=== PATIENT | female | born 1950 | race Caucasian/White ===

== ENCOUNTER 2022-10-12 14:13 | Outpatient (CLI) | payer MEDICARE ==
--- NOTE | 2022-10-12 17:18 | XRAY Report ---
PROCEDURE: Shoulder 3 View LT INDICATIONS: ACUTE PAIN OF LEFT SHOULDER TECHNIQUE: 3 views of the shoulder were acquired. COMPARISON: None. FINDINGS: Bones: No dislocations. There is a small linear ossific fragment suspicious for cortical avulsion a long the inferior aspect of the glenoid on the axillary view. No suspicious bony lesions. Visualized ribs appear intact. Soft tissues: No suspicious soft tissue calcifications. IMPRESSION: 1. Possible nondisplaced inferior glenoid cortical avulsion or bony [place] lesion. 2. No other displaced fractures seen. Reviewed by: Patricia Parsons MD on 10/12/2022 5:16 PM PST Approved by: Patricia Parsons MD on 10/12/2022 5:16 PM PST Station ID: [id number]
== END 2022-10-12 14:14 | disposition home or self-care (01) ==
LOC: DI.S 14:13
PROVIDERS: ATTEND Family Medicine
DX: M25.512 Pain in left shoulder (principal)

== ENCOUNTER 2022-11-09 03:14 | Emergency (ER) | payer MEDICARE ==
[2022-11-09] MEDS ORDERED: SODIUM CHLORIDE 0.9% 500 ML IV STA (03:46)
[2022-11-09] MEDS ORDERED: MORPHINE 2 MG/ML CARPUJECT IVP STA (03:53)
[2022-11-09 04:05] LABS: BASOPHILS % (AUTO) 0.4 %; EOSINOPHILS # (AUTO) 0.2 10^3/uL (0.0-0.7); EOSINOPHILS % (AUTO) 1.9 %; HCT - HEMATOCRIT 41.8 % (37.0-47.0); HGB - HEMOGLOBIN 13.5 g/dL (12.0-16.0); LYMPHOCYTES # (AUTO) 2.4 10^3/uL (1.5-3.5); LYMPHOCYTES % (AUTO) 21.3 %; MEAN CORPUSCULAR HEMOGLOBIN 31.3 pg (27.0-31.0); MEAN CORPUSCULAR HGB CONC 32.3 g/dL (32.0-36.0); MEAN CORPUSCULAR VOLUME 96.8 fL (81.0-99.0); MEAN PLATELET VOLUME 10.1 fL (7.9-10.8); MONOCYTES % (AUTO) 8.7 %; NEUTROPHILS # (AUTO) 7.6 10^3/uL (1.5-6.6); NEUTROPHILS % (AUTO) 67.1 %; PLT - PLATELET COUNT 266 10^3/uL (130-450); RED BLOOD COUNT 4.32 10^6/uL (4.20-5.40); RED CELL DISTRIBUTION WIDTH 12.2 % (12.0-15.0); WHITE BLOOD COUNT 11.4 x10^3/uL (4.8-10.8)
--- NOTE | 2022-11-09 04:07 | ED Physician Documentation ---
History of Present Illness - Stated complaint Stated Complaint: FEMALE /GLF - Chief complaint Chief Complaint: Abd Pain - History obtained from History obtained from: Patient - Additonal information Additional information: 71yF with recent history of dilation and curettage 6 days ago at [place] p/w heavy vaginal bleeding tonight and 2 episodes of syncope in the bathroom. Patient states she was having vaginal bleeding and so went for d and c, had one polyp removed then had only light spotting until yesterday when it became heavy. She was in bathroom this past evening and looked down to see large amount of blood in toilet. She then became lightheaded prior to falling to the floor and losing consciousness. She again passed out immediately after coming back to consciousness. Review of Systems GI: denies: Abdominal Pain : reports: Vaginal bleeding Musculoskeletal: reports: Extremity pain Neurologic: reports: Syncope PD PAST MEDICAL HISTORY - Allergies Allergies/Adverse Reactions: Allergies Allergy/AdvReac Type Severity Reaction Status Date / Time gentamicin AdvReac Unknown Verified 11/09/22 03:32 PD ED PE NORMAL - Vitals Vital signs reviewed: Yes - General General: Alert and oriented X 3, No acute distress, Other (elderly appearing) - HEENT HEENT: Atraumatic, PERRL, EOMI - Neck Neck: No bony TTP - Cardiac Cardiac: RRR - Respiratory Respiratory: No respiratory distress, Clear bilaterally - Abdomen Abdomen: Non tender, Non distended - Female Female : Java Application Developer 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 dark red blood coming from vaginal area) - Derm Derm: Normal color, Warm and dry - Extremities Extremities: Other (L shoulder ttp. 2+ radial pulse LUE) Results - Vitals Vitals: Vital Signs - 24 hr 11/09/22 11/09/22 11/09/22 03:28 04:10 04:40 Temperature 36.2 C L Heart Rate 76 77 76 Respiratory 21 20 14 Rate Blood Pressure 151/83 H 137/119 H 120/62 O2 Saturation 100 100 100 11/09/22 05:56 Temperature Heart Rate 68 Respiratory 19 Rate Blood Pressure 125/75 O2 Saturation 100 Oxygen O2 Source Room air - EKG (time done) 0421 Rate: Rate (enter#) (77) Rhythm: NSR [place]: Normal Intervals: Normal CT QRS: Normal Ischemia: Normal ST segments - Labs Labs: Laboratory Tests 11/09/22 11/09/22 03:43 03:43 WBC 11.4 H RBC 4.32 Hgb 13.5 Hct 41.8 MCV 96.8 MCH 31.3 H MCHC 32.3 RDW 12.2 Plt Count 266 MPV 10.1 Neut # (Auto) 7.6 H Lymph # (Auto) 2.4 [place] # (Auto) 1.0 Eos # (Auto) 0.2 Baso # (Auto) 0.0 Absolute Nucleated RBC 0.00 Nucleated RBC % 0.0 Sodium 141 Potassium 3.9 Chloride 100 L Carbon Dioxide 29 Anion Gap 12.0 BUN 17 Creatinine 0.6 Estimated GFR (MDRD) 98 Glucose 125 H Calcium 9.8 Total Bilirubin 0.5 AST 37 ALT 33 Alkaline Phosphatase 81 Total Protein 7.0 Albumin 4.1 Globulin 2.9 Albumin/Globulin Ratio 1.4 Lipase 31 PD Medical Decision Making - ED course ED course: History obtained from patient and her . Reviewed outside medical records from [facility] hospitalization on 11/04/22 during which she had vaginal bleeding with hemoglobin 13.6 and was taken to bacteriologist [facility] for d&c with one uterine polyp removed. 71-year-old woman With recent d&c with polypectomy 6 days ago at [place] presents with vaginal bleeding tonight and 2 syncopal episodes, with resultant acute on chronic L shoulder pain and head injury. CT of head Independently interpreted by myself and outside radiologist to have no acute abnormalities. X-rays showed nondisplaced greater tuberosity fracture which per patient is chronic. She states she is in process of getting physical therapy for this is ibrahima. Pain medication provided with improvement in ROM of L shoulder. Labwork including CBC and abdominal panel uncovered no acute abnormalities aside from mild leukocytosis. EKG noncontributory. Given her preceding symptoms, syncope was likely vasovagal in nature rather than cardiac. no arrhythmia on telemetry monitoring in ED. No acute traumatic injury on radiologic workup. Patient's vaginal bleeding has diminished and her h and H is within normal limits. discussed return precautions with patient. She will plan to f/u with her global implementation manager for post procedural appointment this Monday. Departure - Departure Disposition: 01 Home, Self Care Clinical Impression: Syncope and collapse, Vaginal bleeding Condition: Stable Instructions: ED Dizziness Syncope Fainting W Pre Comments: You were seen in the emergency department for medical evaluation. Please follow-up with your global implementation manager this Monday and return to the emergency department if you have any new or worsening symptoms or other concerns.
[2022-11-09 04:26] LABS: ALBUMIN 4.1 g/dL (3.2-5.5); ALBUMIN/GLOBULIN RATIO 1.4 (1.0-2.2); BILIRUBIN,TOTAL 0.5 mg/dL (0.2-1.0); CALCIUM 9.8 mg/dL (8.5-10.3); CREATININE 0.6 mg/dL (0.4-1.0); POTASSIUM 3.9 mmol/L (3.5-5.0)
[2022-11-09 05:57] VITALS: BP 125/75
[2022-11-09] MEDS ORDERED: HYDROmorphone 1 MG/ML CARPUJECT IVP STA (05:57)
--- NOTE | 2022-11-09 10:30 | XRAY Report ---
PROCEDURE: Chest 1 View X-Ray INDICATIONS: Chest Pain TECHNIQUE: One view of the chest was acquired. COMPARISON: None. FINDINGS: Surgical changes and devices: None. Lungs and pleura: No pleural effusions or pneumothorax. Lungs are clear. Mediastinum: Mediastinal contours appear normal. Heart size is normal. Bones and chest wall: No suspicious bony lesions. Overlying soft tissues appear unremarkable. IMPRESSION: No acute pulmonary process. The above findings are concordant with preliminary report. Reviewed by: Jennie Vazquez MD on 11/09/2022 10:29 AM [facility] Approved by: Jennie Vazquez MD on 11/09/2022 10:29 AM [facility] Station ID: [id number]
--- NOTE | 2022-11-09 10:33 | XRAY Report ---
PROCEDURE: Shoulder 2 View LT INDICATIONS: shoulder pain s/p fall TECHNIQUE: 2 views of the shoulder were acquired. COMPARISON: Left shoulder 10/04/2022,X-ray humerus 11/09/2022 FINDINGS: Bones: There is an ossification superior to the acromioclavicular joint space without visualized dono r site. It was not present on prior exam. There is irregularity at the greater tuberosity better visu alized on humerus x-ray. No suspicious bony lesions. Visualized ribs appear intact. Soft tissues: No suspicious soft tissue calcifications. IMPRESSION: Although better visualized on humeral x-ray, there is appearance of nondisplaced cortical avulsion fr acture along the greater tuberosity margin. The above findings are concordant with preliminary report. Reviewed by: Jennie Vazquez MD on 11/09/2022 10:31 AM PST Approved by: Jennie Vazquez MD on 11/09/2022 10:31 AM [facility] Station ID: [id number]
--- NOTE | 2022-11-09 10:38 | XRAY Report ---
PROCEDURE: Humerus LT INDICATIONS: shoulder pain s/p fall TECHNIQUE: 2 views of the humerus were acquired. COMPARISON: X-ray left humerus 10/12/2022, x-ray shoulder 11/09/2021, elbow 11/09/2021 FINDINGS: Bones: There is ossification superior to the acromioclavicular joint space without definitively visua lized donor site. It was not present on prior exam. There is irregularity greater tuberosity. No radha picious bony lesions. Soft tissues: No suspicious soft tissue calcifications. IMPRESSION: Irregularity of the greater tuberosity suspicious for avulsion fracture given presence of new adjacen t ossification. The above findings are concordant with preliminary report. Reviewed by: Jennie Vazquez MD on 11/09/2022 10:[address] [facility] Approved by: Jennie Vazquez MD on 11/09/2022 10:[address] [facility] Station ID: [id number]
--- NOTE | 2022-11-09 10:38 | XRAY Report ---
PROCEDURE: Elbow 2 View LT INDICATIONS: shoulder pain s/p fall TECHNIQUE: 2 views of the elbow were acquired. COMPARISON: None FINDINGS: Bones: No fractures or dislocations. No suspicious bony lesions. Soft tissues: No elbow joint effusion. No suspicious soft tissue calcifications. IMPRESSION: No visualized acute fracture or dislocation. However, occult injury cannot be excluded. Recommend idalia rt interval imaging follow-up in 7-10 days as clinically indicated for additional evaluation. Reviewed by: Jennie Vazquez MD on 11/09/2022 10:37 AM [facility] Approved by: Jennie Vazquez MD on 11/09/2022 10:37 AM [facility] Station ID: [id number]
--- NOTE | 2022-11-09 10:42 | CT Report ---
PROCEDURE: HEAD WO INDICATIONS: syncope X 2 TECHNIQUE: Noncontrast 4.5 mm thick angled axial sections acquired from the foramen magnum to the vertex. For r adiation dose reduction, the following was used: automated exposure control, adjustment of mA and/or kV according to patient size. COMPARISON: None. FINDINGS: Image quality: Excellent. The ventricular system and cortical sulci demonstrate atrophy, consistent for patient's stated age. B ifrontal subdural chronic hygromas are noted. There are areas of hypodensity in the periventricular a nd subcortical white matter. There is no acute intra or extra-axial fluid collection. No acute hemo rrhage, mass lesion or midline shift. Brainstem is unremarkable. Globes are symmetrical. Sinuses are aerated. Osseous structures are intact. IMPRESSION: 1. No acute intracranial process. 2. Mild atrophy and chronic microvascular ischemic changes. The above findings are concordant with preliminary report. Reviewed by: Jennie Vazquez MD on 11/09/2022 10:41 AM [facility] Approved by: Jennie Vazquez MD on 11/09/2022 10:41 AM [facility] Station ID: [id number]
== END 2022-11-09 07:09 | disposition home or self-care (01) ==
LOC: ED 03:14
DX: N93.9 Abnormal uterine and vaginal bleeding, unspecified (principal); R55 Syncope and collapse
CPT/HCPCS: 36415; 70450; 71045; 73030; 73060; 73070; 80053; 83690; 85025; 93005; 96361; 96374; 96375; 99284; 99285; J1170

== ENCOUNTER 2022-12-29 06:28 | Day surgery (SDC) | payer MEDICARE ==
[2022-12-29] MEDS ORDERED: CEFAZOLIN 2G/50ML 0.9% NS 2 GM/50 ML BAG IV ONE (06:53)
[2022-12-29] MEDS ORDERED: LACTATED RINGERS 1,000 ML IV ONE ×2 (06:59→08:33)
[2022-12-29] MEDS ORDERED: BUPIVACAINE 0.25% PF 10 ML VIAL ONE (07:12)
[2022-12-29] MEDS ORDERED: LIDOCAINE MPF 2%-EPI 1:200000 20 ML VIAL ONE (07:12)
--- NOTE | 2022-12-29 07:19 | ANESTHESIA ---
Pre-Anesthesia VS, & Labs - Diagnosis uterine cancer - Procedure port placement Vital Signs: Temp Pulse Resp BP Pulse Ox O2 Flow Rate 36.8 C 56 L 14 143/84 H 99 12/29/22 06:44 12/29/22 06:44 12/29/22 06:44 12/29/22 06:44 12/29/22 06:44 Height: 5 ft 2 in Weight (kg): 54.1 kg Body Mass Index: 21.8 BMI Classification: Normal - NPO >8 hours - Is Patient ?: No Home Medications and Allergies Home Medications: Ambulatory Orders Metoprolol Succinate [Kapspargo Sprinkle] 25 mg PO DAILY 12/29/22 Aspirin [Vazalore] 81 mg PO DAILY 12/23/22 Atorvastatin Calcium [Lipitor] 80 mg PO DAILY 12/23/22 Mesalamine 1,000 mg RC UD 12/23/22 Mirtazapine 45 mg PO UD 12/23/22 Sertraline HCl 100 mg PO UD 12/23/22 Solifenacin Succinate 5 mg PO UD 12/23/22 hydroCHLOROthiazide [Hydrodiuril] 25 mg PO DAILY 12/23/22 traZODone [Desyrel] 50 mg PO UD 12/23/22 Metoprolol Succinate [Kapspargo Sprinkle] 25 mg PO DAILY 12/29/22 Allergies/Adverse Reactions: Allergies Allergy/AdvReac Type Severity Reaction Status Date / Time gentamicin AdvReac Unknown Verified 12/23/22 14:08 Anes History & Medical History - Anesthetic History Anesthesia Complications: reports: No previous complications - Medical History Cardiovascular: reports: Hypertension, High cholesterol, Other (history of cardiomyopathy) Pulmonary: reports: None Gastrointestinal: reports: None Urinary: reports: None Neuro: reports: None Musculoskeletal: reports: None Endocrine/Autoimmune: reports: None Blood Disorders: reports: None Skin: reports: None Smoking Status: Former smoker Psychosocial: reports: Alcohol, Cannabis History of Cancer?: Yes (uterine) - Surgical History Gynecologic: reports: Hysterectomy Exam General: Alert, Oriented x3, Cooperative, No acute distress Dental: WNL Mouth Openin Fingerbreadth Neck Mobility: Normal Mallampati classification: II Thyromental Distance: 4-6 cm Mental/Cognitive Status: Alert/Oriented X3, Normal for patient Plan Anesthesia Type: General, MAC, Total IV Consent for Procedure(s) Verified and Reviewed: Yes Code Status: Attempt Resuscitation ASA classification: 3-Severe systemic disease Is this case an emergency?: No
[2022-12-29] MEDS ORDERED: MIDAZOLAM 2 MG/2 ML VIAL ONE (07:28)
[2022-12-29] MEDS ORDERED: fentaNYL 100 MCG/2 ML VIAL ONE (07:28)
--- NOTE | 2022-12-29 07:28 | HISTORY & PHYSICAL EXAMINATION ---
Chief Complaint - Chief Complaint Chief Complaint: here for chemotherapy port History of Present Illness - History Obtained From Records Reviewed: yes History obtained from: pt Exam Limitations: none - History of Present Illness HPI Comment/Other: hx uterine cancer. 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: Hysterectomy Meds/Allgy - Home Medications Home Medications: Ambulatory Orders Medication Instructions Recorded Confirmed Aspirin [Vazalore] 81 mg PO DAILY 12/23/22 12/28/22 Atorvastatin Calcium [Lipitor] 80 mg PO DAILY 12/23/22 12/28/22 Mesalamine 1,000 mg RC UD 12/23/22 12/28/22 Mirtazapine 45 mg PO UD 12/23/22 12/28/22 Sertraline HCl 100 mg PO UD 12/23/22 12/28/22 Solifenacin Succinate 5 mg PO UD 12/23/22 12/28/22 hydroCHLOROthiazide [Hydrodiuril] 25 mg PO DAILY 12/23/22 12/28/22 traZODone [Desyrel] 50 mg PO UD 12/23/22 12/28/22 Metoprolol Succinate [Kapspargo 25 mg PO DAILY 12/29/22 12/29/22 Sprinkle] - Allergies Allergies/Adverse Reactions: Allergies Allergy/AdvReac Type Severity Reaction Status Date / Time gentamicin AdvReac Unknown Verified 12/23/22 14:08 Review of Systems - Other Findings Other Findings: 10 pt ros as above otherwise unremarkable Exam - Vital Signs Reviewed Vital Signs: Yes Vital Signs: Vital Signs x48h Temp Pulse Resp BP Pulse Ox 12/29/22 06:44 36.8 C 56 L 14 143/84 H 99 - Physical Exam General Appearance: positive: No acute distress, Alert Eyes Bilateral: positive: PERRL, EOMI, No scleral icterus ENT: positive: No signs of dehydration Neck: positive: No JVD, Trachea midline Respiratory: positive: No respiratory distress Cardiovascular: positive: Regular rate & rhythm Abdomen: positive: No distention Neurologic/Psychiatric: positive: Oriented x3 Conclusion/Plan - Problem List (1) Vaginal bleeding Conclusion/Plan: hx uterine cancer. chemotherapy and port recommended. plan port placement. parq held and consent obtained
[2022-12-29] MEDS ORDERED: LIDOCAINE 1%-EPI 1:100000 20 ML MDV SUBQ ONE ×2 (08:03)
[2022-12-29] MEDS ORDERED: SODIUM CHLORIDE 0.9% 100 ML BAG IV ONE (08:03)
[2022-12-29] MEDS ORDERED: BUPIVACAINE 0.25% PF 30 ML VIAL SUBQ ONE ×2 (08:04)
[2022-12-29] MEDS ORDERED: HYDROcod/ACETAM 5/325 MG TABLET PO PRN (08:33)
[2022-12-29] MEDS ORDERED: ACETAMINOPHEN 500 MG TABLET PO ONE (08:35)
[2022-12-29] MEDS ORDERED: oxyCODONE 5 MG TABLET PO ONE (08:36)
--- NOTE | 2022-12-29 08:38 | OPERATIVE REPORT ---
Operative Report - General Procedure Date: 12/29/22 Planned Procedure: port placement Pre-Op Diagnosis: history uterine cancer Procedure Performed: left subclavian power port placement fluoroscopic guidance Post Op Diagnosis: same - Procedure Note Primary Surgeon: cole ruiz Anesthesia Technique: Local, MAC Pathology: none Estimated Blood Loss (mL): 1 Indications: need for chemotherapy Findings: tip at junction svc/ atrium. good flush and flow Complications: none - Other Other Information/Narrative: The patient was properly identified brought to the operating room and placed in supine position. Monitored anesthesia care was given as well as IV sedation. A towel roll was placed under the upper back. The patient was prepped and draped in a sterile fashion and given preoperative antibiotics. Local anesthetic was given. The left subclavian vein was easily accessed first pass with a needle. Guide wire placed and position confirmed. A subcutaneous pocket on the left upper chest was created measuring approximately 2-1/2 cm. Portacatheter tubing was then placed subcutaneous up to the venous access point. The portacatheter tubing was then easily placed with the use of a dilator peel-away sheath. The tubing was aspirated and flushed with saline. Under fluoroscopic guidance the tubing was pulled back to the junction of the atrium and the superior vena cava. The portacatheter aspirated and flushed easily assuring good position. The portacatheter was then cut to size and further assembled. The port was secured to subcutaneous tissue with 2 interrupted 4-0 Prolene sutures. The port again was aspirated and flushed now with heparin. Buried interrupted subdermal 3-0 Vicryl sutures were then placed. Skin was closed with buried interrupted and running 4-0 Monocryl subcuticular suture. Dressing was applied. The patient tolerated the procedure well was awakened and brought to recovery in good condition.
--- NOTE | 2022-12-29 09:07 | ANESTHESIA POST OP EVALUATION ---
Anesthesia Post Eval - Post Anesthesia Eval Vitals: Last Vital Signs Temp 36.2 C L 12/29/22 08:45 Pulse 60 12/29/22 08:45 Resp 16 12/29/22 08:45 BP 122/76 12/29/22 08:45 Pulse Ox 99 12/29/22 08:45 O2 Flow Rate CV Function Including HR & BP: Stable Pain Control: Satisfactory Nausea & Vomiting: Negative Mental Status: Baseline Respiratory Status: Airway Patent Hydration Status: Satisfactory Anesthesia Complications: None
[2022-12-29 09:11] VITALS: BP 110/76
--- NOTE | 2022-12-29 10:03 | XRAY Report ---
PROCEDURE: OR Port-A-Cath INDICATIONS: PORTACATH PLACEMENT FLUORO TIME: 0.2 min TECHNIQUE: Real time fluoroscopy was performed of the thorax. COMPARISON: None. FINDINGS: Intraoperative fluoroscopic images of the chest shows central venous catheter tip projecting the expe cted location of the lower SVC/right atrium. IMPRESSION: Fluoroscopy guidance was provided intraoperatively for Port-A-Cath placement. Reviewed by: Warren Rand MD on 12/29/2022 10:02 AM PDT Approved by: Warren Rand MD on 12/29/2022 10:02 AM PDT Station ID: [id number]
== END 2022-12-29 06:29 | disposition home or self-care (01) ==
LOC: SDS 06:28
PROVIDERS: ATTEND Surgery
DX: C55 Malignant neoplasm of uterus, part unspecified (principal); I10 Essential (primary) hypertension; Z87.891 Personal history of nicotine dependence
CPT/HCPCS: 36561; A9270; C1788; J0690; J7120

== ENCOUNTER 2023-02-14 10:22 | Outpatient (CLI) | payer MEDICARE | END 2023-02-14 23:59 | disposition critical access hospital (66) | LOC: EMS 10:22 | DX: S01.01XA Laceration without foreign body of scalp, initial encounter (principal); R51.9 Headache, unspecified; R41.0 Disorientation, unspecified; R42 Dizziness and giddiness; W18.30XA Fall on same level, unspecified, initial encounter; Y93.K1 Activity, walking an animal; Y92.414 Local residential or business street as the place of occurrence of the external cause | CPT/HCPCS: A0425; A0429 ==

== ENCOUNTER 2023-02-14 10:41 | Emergency (ER) | payer MEDICARE ==
[2023-02-14 11:02] LABS: BASOPHILS % (AUTO) 0.5 %; EOSINOPHILS % (AUTO) 0.8 %; HCT - HEMATOCRIT 37.6 % (37.0-47.0); HGB - HEMOGLOBIN 12.2 g/dL (12.0-16.0); LYMPHOCYTES # (AUTO) 1.9 10^3/uL (1.5-3.5); LYMPHOCYTES % (AUTO) 49.2 %; MEAN CORPUSCULAR HEMOGLOBIN 31.6 pg (27.0-31.0); MEAN CORPUSCULAR HGB CONC 32.4 g/dL (32.0-36.0); MEAN CORPUSCULAR VOLUME 97.4 fL (81.0-99.0); MEAN PLATELET VOLUME 8.7 fL (7.9-10.8); MONOCYTES # (AUTO) 0.6 10^3/uL (0.0-1.0); MONOCYTES % (AUTO) 14.5 %; NEUTROPHILS # (AUTO) 1.3 10^3/uL (1.5-6.6); NEUTROPHILS % (AUTO) 34.7 %; PLT - PLATELET COUNT 337 10^3/uL (130-450); RED BLOOD COUNT 3.86 10^6/uL (4.20-5.40); RED CELL DISTRIBUTION WIDTH 13.5 % (12.0-15.0); WHITE BLOOD COUNT 3.9 x10^3/uL (4.8-10.8)
--- NOTE | 2023-02-14 11:09 | XRAY Report ---
PROCEDURE: Chest 1 View X-Ray INDICATIONS: fall TECHNIQUE: One view of the chest was acquired. COMPARISON: None. FINDINGS: Surgical changes and devices: Left chest wall port tip projects over the low SVC. Lungs and pleura: No pleural effusions or pneumothorax. Lungs are clear. Mediastinum: Mediastinal contours appear normal. Heart size is normal. Bones and chest wall: No suspicious bony lesions. Overlying soft tissues appear unremarkable. IMPRESSION: No acute cardiopulmonary process. No pneumothorax or contusion. Reviewed by: Adam Valencia on 02/14/2023 11:08 AM PDT Approved by: Adam Valencia on 02/14/2023 11:08 AM PDT Station ID: [id number]
--- NOTE | 2023-02-14 11:23 | CT Report ---
PROCEDURE: CERVICAL SPINE WO INDICATIONS: head injury/confusion TECHNIQUE: Noncontrast 3 mm thick sections acquired from the skull base to the T4 level. Sagittal and coronal r eformats were then constructed. For radiation dose reduction, the following was used: automated exp osure control, adjustment of mA and/or kV according to patient size. COMPARISON: None. FINDINGS: Image quality: Excellent. Bones: No fractures or dislocations. Visualized superior ribs are intact. Stranding of the normal cervical lordosis. Multilevel mild to moderate degenerative disc disease and facet arthrosis. No toñito re spinal canal or neural foraminal narrowing. Soft tissues: Prevertebral soft tissues are normal in thickness. No paravertebral hematomas. No ap ical pneumothoraces. IMPRESSION: No acute, displaced fracture or traumatic subluxation. Reviewed by: Adam Valencia on 02/14/2023 11:22 AM PDT Approved by: Adam Valencia on 02/14/2023 11:22 AM PDT Station ID: [id number]
[2023-02-14 11:25] LABS: ALBUMIN/GLOBULIN RATIO 1.4 (1.0-2.2); BILIRUBIN,TOTAL 0.5 mg/dL (0.2-1.0); CALCIUM 9.7 mg/dL (8.5-10.3); CREATININE 0.5 mg/dL (0.4-1.0); POTASSIUM 3.9 mmol/L (3.5-5.0); TOTAL PROTEIN 6.8 g/dL (6.7-8.2)
--- NOTE | 2023-02-14 11:27 | CT Report ---
PROCEDURE: HEAD WO INDICATIONS: head injury TECHNIQUE: Noncontrast 4.5 mm thick angled axial sections acquired from the foramen magnum to the vertex. For r adiation dose reduction, the following was used: automated exposure control, adjustment of mA and/or kV according to patient size. COMPARISON: None. FINDINGS: Image quality: Excellent. CSF spaces: Basal cisterns are patent. Small volume subarachnoid hemorrhage overlying the left anter ior frontal convexity and within the sylvian fissure. Trace hemorrhagic products overlying the right anterior frontal lobe. Ventricles are normal in size and shape. Brain: No midline shift. No intracranial masses or hemorrhage. Lee-white matter interface is norm al. Skull and face: Calvarium and visualized facial bones are intact, without suspicious lesions. Large scalp contusion overlying the posterior left calvarium, without underlying fracture. Sinuses: Visualized sinuses and mastoids are clear. IMPRESSION: Small volume subarachnoid hemorrhage along the left cerebral convexity and anterior right frontal lob e. No mass effect or midline shift. No hydronephrosis. Findings were discussed with provider at time of dictation. Reviewed by: Adam Valencia on 02/14/2023 11:25 AM PDT Approved by: Adam Valencia on 02/14/2023 11:25 AM PDT Station ID: [id number]
--- NOTE | 2023-02-14 11:34 | ED Physician Documentation ---
History of Present Illness - Stated complaint Stated Complaint: FALL - Chief complaint Chief Complaint: Trauma Hd/Nk - Additonal information Additional information: 72-year-old female presents emergency department via EMS for evaluation of fall with loss of consciousness. Patient is amnesic to the events and confused at bedside. Reportedly she was walking her dogs. Her neighbor saw her walking the dogs and a period of time of about 5 minutes had elapsed when she was seen again on the ground. She presented with a very large hematoma and laceration to her posterior occiput. Reportedly the patient is undergoing current chemotherapy and radiation for uterine cancer. Neck scheduled to receive chemotherapy this Monday and radiation treatment tomorrow. 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 - Present Medications Home Medications: Ambulatory Orders Medication Instructions Recorded Confirmed Aspirin [[place]] 81 mg PO DAILY 12/23/22 01/27/23 Atorvastatin Calcium [Lipitor] 80 mg PO DAILY 12/23/22 01/27/23 Mesalamine 1,000 mg RC UD 12/23/22 01/27/23 Mirtazapine 45 mg PO UD 12/23/22 01/27/23 Sertraline HCl 100 mg PO UD 12/23/22 01/27/23 Solifenacin Succinate 5 mg PO UD 12/23/22 01/27/23 hydroCHLOROthiazide [Hydrodiuril] 25 mg PO DAILY 12/23/22 01/27/23 traZODone [Desyrel] 50 mg PO UD 12/23/22 01/27/23 HYDROcod/ACETAM 5/325 [[place] 5/325] 1 each PO Q6H PRN #15 tablet 12/29/22 01/27/23 HYDROcod/ACETAM 5/325 [[place] 5/325] 1 each PO Q6H PRN #15 tablet 12/29/22 01/27/23 Metoprolol Succinate [[place]sp[place] 25 mg PO DAILY 12/29/22 01/27/23 Sprinkle] Lidocaine/Prilocain 2.5% Cream 5 applic TOP UD #1 each 01/02/23 [Emla 2.5% Cream] Prochlorperazine Maleate 10 mg PO Q6HR PRN #30 tablet 01/02/23 dexAMETHasone [Decadron] 8 mg PO UD #24 tablet 01/02/23 ondansetron HCL [Ondansetron HCl] 8 mg PO BID PRN #30 tablet 01/02/23 oxyCODONE [Roxicodone] 5 mg PO TID PRN #10 tablet 02/14/23 - Allergies Allergies/Adverse Reactions: Allergies Allergy/AdvReac Type Severity Reaction Status Date / Time gentamicin AdvReac Unknown Verified 02/14/23 10:52 - Social History Does the pt smoke?: No Smoking Status: Never smoker - POLST Patient has POLST: No PD ED PE EXPANDED - General General: Alert, Other (Confused) - HEENT HEENT: PERRL, EOMI. No: Atraumatic (Large 4 x 5 cm hematoma left posterior occiput with a 3 cm macerated Laceration) - Neck Neck: Supple w/out meningeal sx. No: Adenopathy, Limited ROM (Full range of motion of cervical spine without tenderness.) - Cardiac Cardiac: Regular Rate, Radial strong equal, Pedal strong equal - Respiratory Respiratory: Clear to ausultation tina. No: Distress, Labored - Abdomen Abdomen: Normal Bowel sounds - Neuro Neuro: Confused, CNII-XII intact, Normal speech - GCS Eye Opening: Spontaneous Motor: Obeys Commands Verbal: Confused (confused to month and time and place) Total: 14 Results - Vitals Vitals: Vital Signs - 24 hr 02/14/23 02/14/23 02/14/23 10:48 11:24 11:52 Temperature 36.8 C Heart Rate 71 68 70 Respiratory 22 20 20 Rate Blood Pressure 149/95 H 164/87 H 157/86 H O2 Saturation 96 100 100 02/14/23 02/14/23 02/14/23 12:10 12:30 13:00 Temperature Heart Rate 73 82 80 Respiratory 20 20 18 Rate Blood Pressure 146/90 H 111/90 H O2 Saturation 100 100 100 02/14/23 02/14/23 02/14/23 13:30 14:00 14:30 Temperature Heart Rate 77 74 72 Respiratory 18 18 16 Rate Blood Pressure 130/88 H 126/90 H 120/95 H O2 Saturation 92 94 92 02/14/23 02/14/23 15:00 16:00 Temperature 36.5 C Heart Rate 71 70 Respiratory 16 16 Rate Blood Pressure 120/95 H 120/88 H O2 Saturation 100 100 Oxygen O2 Source Room air - EKG (time done) 1116 EKG releavant findings:: EKG personally interpreted by author of this note. Relevant findings are: Rate: Rate (enter#) (62) Rhythm: NSR [place]: Normal Intervals: Normal CA QRS: Normal Ischemia: Non specific changes Compare to prior EKG: Old EKG unavailable Computer interpretation: Agree with computer - Labs Labs: Laboratory Tests 02/14/23 02/14/23 02/14/23 10:54 10:54 11:30 WBC 3.9 L RBC 3.86 L Hgb 12.2 Hct 37.6 MCV 97.4 MCH 31.6 H MCHC 32.4 RDW 13.5 Plt Count 337 MPV 8.7 Neut # (Auto) 1.3 L Lymph # (Auto) 1.9 [place] # (Auto) 0.6 Eos # (Auto) 0.0 Baso # (Auto) 0.0 Absolute Nucleated RBC 0.00 Nucleated RBC % 0.0 Sodium 139 Potassium 3.9 Chloride 102 Carbon Dioxide 26 Anion Gap 11.0 BUN 15 Creatinine 0.5 Estimated GFR (MDRD) 121 Glucose 118 H Calcium 9.7 Total Bilirubin 0.5 AST 31 ALT 34 Alkaline Phosphatase 69 Total Protein 6.8 Albumin 4.0 Globulin 2.8 Albumin/Globulin Ratio 1.4 SARS-CoV-2 (PCR) NOT DETECTED - Rads (name of study) CT head Relevant Findings:: Final report received (Small volume subarachnoid hemorrhage along the left cerebral Convexity and anterior right frontal lobe. No mass effect or midline shift. No hydronephrosis.) cervical CT Relevant Findings:: Final report received (No acute displaced fractures or traumatic subluxation) angio head Relevant Findings:: Final report received (Similar small volume left hemispheric subarachnoid hemorrhage. No significant mass effect. No vascular etiology identified on CTA. This is probably traumatic) Procedures - Laceration (location) scalp laceration Length in cm: 4.5 Wound type: Irregular, Into subcut fat Wound preparation: Chlorhexadine, Irrigated copiously NS Skin layer closure: Leslie (9) Other: Other (4 cm macerated left posterior scalp wound which had difficult to achieve hemostasis. Despite the use of lidocaine with epi and Tranxene make acid it continued to bleed despite pressure. Subsequently 9 leslie were placed in this wound to approximate it, which resolved bleeding) PD Medical Decision Making - ED course ED course: 72-year-old female presents emergency department for evaluation of closed head injury altered mental status. Reportedly walking her dogs this morning. Her neighbor who had seen her passed by the house looked out the window about 5 minutes later and found her on the ground. Patient did have loss of consciousness and was amnesic to the events. Currently undergoing both radiation and chemotherapy for uterine cancer. She is not anticoagulated. On presentation to the emergency department she is confused to the time and place. She also has repetitive questions and statements though she has no obvious focal neurodeficits. Subsequently we did obtain CBC, electrolytes and an INR. Per my interpretation no acute worrisome findings. A CT of the head was completed and unfortunately it does show a subarachnoid hemorrhage along the left cerebral convexity as well as an anterior right frontal lobe. 1200: I have spoken with neurosurgeon Dr. Gonzalez with [facility]. She reports that she does not feel the patient meets the emergent need for transfer. The small volume of the subarachnoid hemorrhage is not something that would likely be neural surgically corrected. She would recommend a CT angio at about 4-hour rock to ensure no aneurysm is present and that there is no change or shift in the volume of the subarachnoid bleed if unchanged stable for discharge home 1600: I have spoken on the phone with Dr. Smith Oncologist of record for this patient. We discussed the clinical presentation. The patient requested I discussed with him whether she was safe to receive chemotherapy or radiation this week. He request that she be seen in his office first. 1608: Subsequent CT angiogram of the head has been completed. Similar appearance of the small volume subarachnoid hemorrhage is seen. Patient continues to have no mass effect. No obvious vascular etiology identified. Radiology feels this is likely a traumatic subarachnoid hemorrhage. Patient has been able to ambulate without assistance. She continues to endorse a mild headache. Rest of her exam was otherwise unremarkable. At this time she is stable for discharge home. She is advised no NSAID medication or aspirin. I am prescribing a limited amount of oxycodone for headache at home. Emergent return precautions for worsening symptoms were discussed I am prescribing a short course of short-acting opioid pain medication for this patient. I have reviewed the patients ADULT DAYCARE COORDINATOR and no concerning findings were noted. I have discussed that the opioids are for short term therapy only, and will not be refilled from the ED. Departure - Departure Disposition: 01 Home, Self Care Clinical Impression: Traumatic subarachnoid hemorrhage with loss of consciousness Qualifiers: Encounter type: initial encounter Qualified Code(s): S06.6X9A - Traumatic subarachnoid hemorrhage with loss of consciousness of unspecified duration, initial encounter Left parietal scalp hematoma Qualifiers: Encounter type: initial encounter Qualified Code(s): S00.03XA - Contusion of scalp, initial encounter Prescriptions: oxyCODONE [Roxicodone] 5 mg PO TID PRN #10 tablet PRN Reason: Pain Comments: Amie you are seen today in the emergency department after a fall at home. Is not clear to us why you fell. The EKG looked good your labs were also without worrisome findings. Unfortunately after the fall you did develop a traumatic subarachnoid hemorrhage. A repeat CT of the head completed about 4 hours after you arrived did not show any aneurysm or concern with the arteries in the head. The size of the The subarachnoid hemorrhage was stable on repeat imaging. I did speak with your oncologist. He would recommend that you do not receive radiation or chemotherapy until seen and cleared by him in office. Please call to schedule this appointment. The laceration on your scalp caused a very large hematoma or bruising under the skin. The leslie should be removed in about 2 weeks time. If removed too soon they may cause the wound to open up. Over the next week or so expect that you will have a mild headache. I prescribed a limited amount of oxycodone for this. It can make you unsafe to drive. It can also cause increased dizziness and risk for falls. I recommend that you ambulate with your at all times for the next week or so. It can also cause constipation. Please take MiraLAX if you develop constipation. If at any point you develop any sudden severe or different headache, have slurred speech, facial droop or sudden weakness in your arms or legs you should return immediately to the ER for repeat evaluation I am prescribing a short course of narcotic pain medication for you. These are potentially dangerous and addictive medications that should be used carefully. These medications may constipate you. Take an nixm-svf-jzuzcwc stool softener (docusate) twice daily with plenty of water while taking these medications. If you go 24 hours without a bowel movement, take hxox-elh-szxbunx miralax, per package instructions. Do not drink or drive while taking these medications. If you received narcotic or sedating medications while in the emergency department, do not drive for 24 hours. Store this medication in a safe, secure place and out of reach of children. It is a violation of federal law to give or sell this medication to another person or to use in a manner other than prescribed. The ED will not refill narcotic prescriptions, including prescriptions lost or stolen. To dispose of unwanted medications: 1. [facility] at [address] in [place] has a medication drop box. They accept prescription medications (in pill form) Monday through Monday 9:00 a.m. to 5:00 p.m. 2. The [facility] accepts prescription medications (in pill form only) for disposal year round. Call for more information. 3. Contact the [facility] for the next [facility] sponsored prescription drug collection event. , [phone], or [phone]; Note that many narcotic pain relievers also contain Tylenol/acetaminophen. Please ensure that your total dose of acetaminophen from all sources does not exceed 3 g (3000 mg) per day.
[2023-02-14] MEDS: lidocaine 1% 20 ML MDV SUBQ ONE (11:46)
[2023-02-14] MEDS: TETANUS/DIPHTHERIA/PERTUSSIS 0.5 ML SYRINGE IM ONE (11:46)
[2023-02-14] MEDS: HYDROmorphone 1 MG/ML CARPUJECT IVP STA ×2 (12:19→12:59)
[2023-02-14] MEDS ORDERED: LIDOCAINE 1%-EPI 1:100000 10 ML MDV SUBQ STA (12:31)
[2023-02-14] MEDS: TRANEXAMIC ACID 1,000 MG/10 ML VIAL NAS STA (12:47)
[2023-02-14] MEDS: LIDOCAINE 1%-EPI 1:100000 20 ML MDV SUBQ STA (12:47)
[2023-02-14] MEDS: SODIUM CHLORIDE 0.9% 1,000 ML IV STA (13:00)
--- NOTE | 2023-02-14 16:06 | CT Report ---
PROCEDURE: ANGIO HEAD W/WO INDICATIONS: f/u SAH CONTRAST: 80mL Omni 300 TECHNIQUE: Precontrast 4.5 mm thick angled axial sections acquired from the foramen magnum to the vertex. Afte r the administration of intravenous contrast, 1 mm thick sections acquired through the [place] of [place] is. Postcontrast 4.5 mm thick sections then re-acquired from the foramen magnum to the vertex. 3-di mensional dfjpdkk-tjewzpjqu-lpscqsknmm (MIP) and/or volume rendering reformats were acquired of the c entral intracranial vasculature. For radiation dose reduction, the following was used: automated ex posure control, adjustment of mA and/or kV according to patient size. COMPARISON: Same-day CT FINDINGS: Image quality: Good CSF spaces: Basal cisterns are patent. Lateral ventricles are symmetric. Volume: Vascular calcifications. Periventricular white matter disease is commonly seen with chronic m icroangiopathy. Volume loss is present. These findings are mild to moderate Brain: Small volume subarachnoid hemorrhage along the left hemisphere, primarily frontal distribution , is similar to prior. No significant mass effect. No new or enlarging hemorrhage. Craniofacial structures: Left scalp laceration and hematoma. Head angiography Anterior circulation: ICAs: Mild cavernous carotid calcifications bilaterally. ACAs: normal and symmetric MCAs: normal and symmetric AComm: no aneurysm Posterior circulation: Dominance: Left Vertebral arteries: no stenosis, occlusion, or aneurysm Basilar artery: unremarkable PComms: no aneurysm belt changer: normal and symmetric Soft tissues and bones: No significant abnormality. IMPRESSION: Similar small volume left hemispheric subarachnoid hemorrhage. No significant mass effect. No vascula r etiology identified on CTA. This is probably traumatic. Reviewed by: Gary Sarkar MD on 02/14/2023 4:04 PM PDT Approved by: Gary Sarkar MD on 02/14/2023 4:04 PM PDT Station ID: [id number]
[2023-02-14 16:10] VITALS: BP 120/88
[2023-02-14] MEDS: iohexoL-300 100 ML VIAL IVP ONE (16:36)
== END 2023-02-14 16:27 | disposition home or self-care (01) ==
LOC: EDUNIT# → ED 10:41
DX: S06.6X1A Traumatic subarachnoid hemorrhage with loss of consciousness of 30 minutes or less, initial encounter (principal); S00.03XA Contusion of scalp, initial encounter; W19.XXXA Unspecified fall, initial encounter; Y93.K1 Activity, walking an animal; I10 Essential (primary) hypertension; E78.00 Pure hypercholesterolemia, unspecified; Z79.899 Other long term (current) drug therapy; Z79.82 Long term (current) use of aspirin; Z20.822 Contact with and (suspected) exposure to COVID-19
CPT/HCPCS: 12002; 36415; 70450; 70496; 71045; 72125; 80053; 85025; 87635; 90471; 90715; 93005; 96361; 96374; 96376; 99284; J1170; Q9967

== ENCOUNTER 2023-12-05 09:38 | Outpatient (CLI) | payer MEDICARE ==
--- NOTE | 2023-12-05 13:02 | MRI Report ---
PROCEDURE: Lumbar Spine WO INDICATIONS: LOW BACK PAIN TECHNIQUE: Noncontrast sagittal T1 spin echo and T2 fast echo, sagittal STIR, axial T1 and T2 fast spin echo thr ough the lumbar spine. In cases with scoliosis, additional coronal T2 fast spin echo may be performe d. COMPARISON: Correlation is made with prior abdomen pelvis CT, 10/24/2023. FINDINGS: Image quality: Excellent. Alignment and Curvature: Mild dextroconvex scoliotic curvature is seen. There is minimal to mild ret rolisthesis at L2-L3 and L3-L4. Mild grade 1 anterolisthesis is seen at the L4-L5 level. Bone Marrow: Marrow is of normal overall signal. Scattered foci of T1-weighted hyperintensity and T2-weighted hyperintensity are seen, without increased STIR signal. These foci are attributed to kristin gn vertebral body hemangiomas. No acute vertebral body compression fractures. Spinal Cord: Conus medullaris terminates at the L1 level. Visualized cord demonstrates normal signa l and size. Paraspinous Soft Tissues: No paravertebral masses. T12-L1: Normal in appearance. L1-L2: No significant abnormality is seen. L2-L3: At least moderate loss of disc height and disc signal can be seen. Reactive marrow endplat e changes are seen, which are hyperintense on T1-weighted and T2-weighted imaging, without significan t increased STIR signal. 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 At least moderate disc bulge is seen, which is eccentric to the left. There is a central disc protrusion. Mild facet hypertrophy is seen. There is moderate left-sided and minimal right-side d neuroforaminal narrowing. Mild central canal narrowing is seen. L3-L4: Moderate loss of disc height and signal are seen. Mild to moderate disc bulge is seen. A sup erimposed central disc protrusion is seen. There is mild right-sided and mild to moderate left-sided facet hypertrophy. There is at least moderate left-sided and moderate right-sided neuroforaminal alfred rowing. Mild central canal narrowing is seen. L4-L5: Moderate loss of disc height and signal are seen. Mild to moderate disc bulge is seen, which is eccentric to the left. There is a central disc protrusion/disc uncovering seen. Moderate to promi nent facet hypertrophy is seen. There is at least moderate right-sided neuroforaminal narrowing, with a degree of compression upon the exiting L4 nerve root. Moderate left-sided neuroforaminal narrowing is seen. Moderate central canal narrowing is seen. L5-S1: At least moderate loss of disc height and disc signal can be seen. Reactive marrow endplate changes are seen, which are hyperintense on T1-weighted and T2-weighted imaging, without significant increased STIR signal. 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 Mild disc bulge is seen. Mild facet hypertrophy is seen. No significant neural foraminal or central canal narrowing can be seen. IMPRESSION: Multiple levels of significant lumbar spine degenerative change can be seen. Reviewed by: Endy Pelaez MD on 12/05/2023 12:00 PM [facility] Approved by: Endy Pelaez MD on 12/05/2023 12:00 PM [facility] Station ID: [id number]
== END 2023-12-05 09:39 | disposition home or self-care (01) ==
LOC: DI 09:38
PROVIDERS: ATTEND Family Medicine
DX: M43.16 Spondylolisthesis, lumbar region (principal); M47.26 Other spondylosis with radiculopathy, lumbar region

== ENCOUNTER 2024-02-13 10:43 | Outpatient (CLI) | payer MEDICARE | END 2024-02-13 10:44 | disposition home or self-care (01) | LOC: LAB 10:43 | PROVIDERS: ATTEND Obstetrics & Gynecology | DX: C55 Malignant neoplasm of uterus, part unspecified (principal) | CPT/HCPCS: 36415; 86304 ==

== ENCOUNTER 2024-02-13 11:11 | Outpatient (CLI) | payer MEDICARE ==
--- NOTE | 2024-02-14 08:32 | XRAY Report ---
PROCEDURE: Lumbar Spine Bending 2-3V INDICATIONS: LUMBAR STENOSIS TECHNIQUE: AP & Lateral views of the lumbar spine were acquired, followed by flexion & extension duyen ding views of the lumbar spine. COMPARISON: MRI lumbar spine, 12/05/2023. FINDINGS: Bones: 5 dda-chl-dypmokb vertebrae are present. There is grade 1 anterolisthesis of L4 on L5. No v ertebral body compression fractures. No suspicious bony lesions. Multilevel degenerative disc diseas e, moderate at L3-L4 and L5 L5, mild at other levels. Moderate facet arthropathy at L3-L4, L5 L5 and L5-S1. Soft tissues: Overlying bowel gas pattern is normal. No suspicious soft tissue calcifications. Flexion/extension: There is reduced range of motion, with stable alignment. IMPRESSION: 1. Moderate degenerative disc and facet disease. 2. Grade 1 anterolisthesis of L4 on L5. 2. Reduced range of motion with stable alignment. Reviewed by: Josue Ferraro MD on 02/14/2024 8:31 AM PDT Approved by: Josue Ferraro MD on 02/14/2024 8:31 AM PDT Station ID: [id number]
--- NOTE | 2024-02-14 08:37 | XRAY Report ---
PROCEDURE: Hip w/Pelvis 2-3V RT INDICATIONS: LUMBAR STENOSIS TECHNIQUE: 2 views of the hip were acquired. COMPARISON: None. FINDINGS: Bones: No fractures or dislocations. No suspicious bony lesions. Mild degenerative joint disease in hips and sacrum iliac joints bilaterally. Spondylitic changes in the lower lumbar spine. Soft tissues: No suspicious soft tissue calcifications or masses. There is a large amount of stool i n colon. IMPRESSION: 1. No acute bony abnormality. 2. Mild degenerative joint disease. Reviewed by: Josue Ferraro MD on 02/14/2024 8:35 AM PDT Approved by: Josue Ferraro MD on 02/14/2024 8:35 AM PDT Station ID: [id number]
== END 2024-02-13 11:12 | disposition home or self-care (01) ==
LOC: DI 11:11
PROVIDERS: ATTEND Neurological Surgery
DX: M47.816 Spondylosis without myelopathy or radiculopathy, lumbar region (principal); M47.817 Spondylosis without myelopathy or radiculopathy, lumbosacral region; M51.36 Other intervertebral disc degeneration, lumbar region; M51.37 Other intervertebral disc degeneration, lumbosacral region; M43.16 Spondylolisthesis, lumbar region; M16.0 Bilateral primary osteoarthritis of hip; M47.898 Other spondylosis, sacral and sacrococcygeal region

== ENCOUNTER 2024-02-20 13:38 | Outpatient (CLI) | payer MEDICARE ==
[2024-02-20 14:04] LABS: HCT - HEMATOCRIT 38.9 % (37.0-47.0); MEAN CORPUSCULAR HGB CONC 30.8 g/dL (32.0-36.0); MEAN CORPUSCULAR VOLUME 103.7 fL (81.0-99.0); MEAN PLATELET VOLUME 9.6 fL (7.9-10.8); RED BLOOD COUNT 3.75 10^6/uL (4.20-5.40); RED CELL DISTRIBUTION WIDTH 12.7 % (12.0-15.0); WHITE BLOOD COUNT 5.3 x10^3/uL (4.8-10.8)
== END 2024-02-20 13:39 | disposition home or self-care (01) ==
LOC: LAB 13:38
PROVIDERS: ATTEND Internal Medicine Gastroenterology
DX: K51.20 Ulcerative (chronic) proctitis without complications (principal)
CPT/HCPCS: 36415; 85027

== ENCOUNTER 2024-02-21 09:04 | Outpatient (CLI) | payer MEDICARE | END 2024-02-21 09:05 | disposition home or self-care (01) | LOC: LAB.R 09:04 | PROVIDERS: ATTEND Internal Medicine Gastroenterology | DX: K51.20 Ulcerative (chronic) proctitis without complications (principal) | CPT/HCPCS: 83993; 87493 ==

== ENCOUNTER 2024-03-13 13:14 | Outpatient (CLI) | payer MEDICARE ==
[2024-03-13 13:37] LABS: CREATININE 0.8 mg/dL (0.6-1.3)
[2024-03-13] MEDS: DIATRIZOATE MEGLU/DIATRIZO SOD 30 ML BOTTLE PO ONE (14:50)
[2024-03-13] MEDS: iohexoL-300 100 ML VIAL IVP ONE (14:50)
--- NOTE | 2024-03-14 08:25 | CT Report ---
PROCEDURE: Abdomen/Pelvis W INDICATIONS: CARCINOSARCOMA CONTRAST: 100ml [id number] TECHNIQUE: After the administration of intravenous contrast, a CT scan of the abdomen and pelvis was performed. Images were recorded and evaluated at appropriate window settings. Reformats: coronal and sagittal. F or radiation dose reduction, the following was used: automated exposure control, adjustment of mA and /or kV according to patient size. COMPARISON: 10/24/2023, 08/04/2023 FINDINGS: Image quality: Diagnostic. Lower chest: Wall thickening of the lower esophagus. Liver: No solid mass. Hepatic cysts. Gallbladder: No radiopaque stones or wall thickening. Biliary tree: No intrahepatic or extrahepatic dilation, accounting for age. Spleen: No splenomegaly. Pancreas: No pancreatic ductal dilation. Adrenals: No adrenal nodule. Kidneys and ureters: No hydronephrosis. No renal cystic lesion which requires follow up. No solid mas s. Junctional cortical defect of the left kidney. Stomach, bowel and peritoneum: No gastric or small bowel dilation. Mild diffuse rectal wall thickenin g, with associated prominent mesorectal lymph nodes. No pathologic free fluid. Lymph nodes: No central or retroperitoneal adenopathy. Vessels: No infrarenal aortic aneurysm. Patent portal vein. PELVIS Reproductive organs: Hysterectomy. No pelvic mass. Bladder: No abnormal wall thickening, accounting for underdistention. Pelvic lymph nodes: No pelvic adenopathy by size criteria. Bones: No aggressive osseous abnormality. Stable heterogeneous bone signal, without measurable diseas e. Other: No significant ventral or inguinal hernia. IMPRESSION: Hysterectomy, without pelvic mass. Mild diffuse rectal wall thickening, with associated prominent mesorectal lymph nodes. Findings are u nchanged from prior and could be a sequela of radiation, less likely primary malignancy. Consider scr eening colonoscopy if not up-to-date. Stable diffuse thickening of the lower esophagus, probably chronic esophagitis, although malignancy r emains a consideration. Reviewed by: Adam Valencia MD on 03/14/2024 8:23 AM PDT Approved by: Adam Valencia MD on 03/14/2024 8:23 AM PDT Station ID: [id number]
--- NOTE | 2024-03-14 09:16 | CT Report ---
PROCEDURE: Chest W INDICATIONS: CARCINOSARCOMA CONTRAST: 100ml [id number] TECHNIQUE: After the administration of intravenous contrast, a CT scan of the chest was performed. Images were recorded and evaluated at appropriate window settings. Reformats: axial MIP of the chest, coronal and sagittal. For radiation dose reduction, the following was used: automated exposure control, adjustme nt of mA and/or kV according to patient size. COMPARISON: CT 10/24/2023, 08/04/2023 FINDINGS: Image quality: Diagnostic. Chest wall and lower neck: No thyroid nodule which requires sonographic follow up. No breast mass. No axillary or supraclavicular adenopathy by size. Lungs and pleura: No consolidation. No pleural effusions. No pneumothorax. Slight interval decrease in size of the 2 to 3 mm solid nodules in the right middle lobe, previously 4 mm (series 4, image 66) . Additional solid and groundglass nodules in the left upper lobe and lingula are unchanged. For instan ce, stable 2 mm nodule in the lingula (series 4, image 52), and 3 mm nodule in the left upper lobe (s eries 4, image 37). Mediastinum: Heart size is normal. No pericardial effusion. No large vessel abnormality. No mediastin al adenopathy by size criteria. Moderate LAD calcifications. Small hiatal hernia. Diffuse thickening of the lower esophagus. Bones: No aggressive osseous abnormality. Upper Abdomen: Separately dictated. IMPRESSION: Slight interval decrease in size of the solid nodules in the right middle lobe. This discrepancy coul d be explained by true decrease in size versus artifact of slice selection. Remaining solid nodules a re stable from prior. Diffuse thickening of the lower esophagus, probably esophagitis, less likely malignancy. Consider dir ect visualization if not performed in the past. Reviewed by: Adam Valencia MD on 03/14/2024 9:15 AM PDT Approved by: Adam Valencia MD on 03/14/2024 9:15 AM PDT Station ID: [id number]
== END 2024-03-13 13:15 | disposition home or self-care (01) ==
LOC: LAB 13:14
PROVIDERS: ATTEND Obstetrics & Gynecology
DX: C55 Malignant neoplasm of uterus, part unspecified (principal); R91.8 Other nonspecific abnormal finding of lung field; R93.3 Abnormal findings on diagnostic imaging of other parts of digestive tract; Z90.710 Acquired absence of both cervix and uterus
CPT/HCPCS: 36415; 71260; 74177; 82565; Q9967

== ENCOUNTER 2024-03-16 14:06 | Outpatient (CLI) | payer MEDICARE ==
[~2024-03-16 14:06] MED LIST: GADOTERATE MEGLUMINE 10 MMOL/20 ML VIAL ONE
[2024-03-16] MEDS: GADOTERATE MEGLUMINE 10 MMOL/20 ML VIAL IVP ONE (16:09)
--- NOTE | 2024-03-16 16:51 | MRI Report ---
PROCEDURE: Hip RT W/WO INDICATIONS: UTERINE CA, R HIP PAIN CONTRAST: CLARISCAN ML TECHNIQUE: Noncontrast coronal T1 spin echo and STIR through the bony pelvis. Coronal and axial T2 fast spin ec ho with fat saturation, axial T1 spin echo with fat saturation, sagittal T1 spin echo, and oblique ax ial T2 fast spin echo with fat saturation through the hip. Post-contrast axial, coronal, and sagitta l spin echo with fat saturation through the hip. COMPARISON: Hip radiograph 02/13/2024, pelvic CT 24. FINDINGS: Image quality: Excellent. Bones and joints: Within the posterior acetabulum there is a 1.1 cm foci of abnormal T1 hypointensity that is slightly hyperintense on T2 fat-saturated imaging. There is questionable mild enhancement. 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 The visualized lower lumbar spine appears normally aligne d. Tendons: Tendinosis of the gluteus medius and minimus tendons. Mild fluid along the greater trochante r. The iliopsoas tendon appears intact, without adjacent bursal fluid collections. Tendinosis of the hamstring tendon at the ischial tuberosity.. Labrum and cartilage: The acetabular labrum appears intact in the absence of intra-articular contras t. Cartilage surface of the femoral head appears of normal thickness. The alpha angle of the femur is within normal limits at less than 55 degrees. Soft tissues: No suspicious soft tissue enhancement. Visualized muscles demonstrate normal bulk and internal signal. The proximal sciatic neurovascular bundle appears normal adjacent to the hamstring tendons. No free pelvic fluid. Bladder wall thickness is normal. Genitourinary structures and bow el loops appear normal where visualized. IMPRESSION: 1.Bilateral trochanteric bursitis. 2.Tendinosis of the gluteus medius and minimus tendons. 3.Tendinosis with partial tearing of the right hamstring origin. 4.Possible osseous lesion in the right posterior acetabulum without CT correlate. This may reflect at ypical hemangioma however cannot exclude metastatic disease given history of prior carcinoma Reviewed by: Jeffery Wilder MD on 03/16/2024 3:50 PM [facility] Approved by: Jeffery Wilder MD on 03/16/2024 3:50 PM [facility] Station ID: [id number]
== END 2024-03-16 14:07 | disposition home or self-care (01) ==
LOC: DI 14:06
PROVIDERS: ATTEND Internal Medicine Hematology & Oncology
DX: C55 Malignant neoplasm of uterus, part unspecified (principal); M70.61 Trochanteric bursitis, right hip; M67.853 Other specified disorders of tendon, right hip
CPT/HCPCS: 73723; A9575

== ENCOUNTER 2024-05-03 13:27 | Outpatient (CLI) | payer MEDICARE ==
[2024-05-03 14:13] LABS: CREATININE 0.5 mg/dL (0.6-1.3); MAGNESIUM 1.8 mg/dL (1.7-2.3); POTASSIUM 4.2 mmol/L (3.5-4.5)
[2024-05-03 14:27] LABS: THYROID STIMULATING HORMONE 2.62 uIU/mL (0.34-5.60)
[2024-05-03 14:33] LABS: FERRITIN 30.4 ng/mL (11.0-306.8)
== END 2024-05-03 13:28 | disposition home or self-care (01) ==
LOC: LAB 13:27
PROVIDERS: ATTEND Family Medicine
DX: R41.840 Attention and concentration deficit (principal); R25.2 Cramp and spasm; Z51.81 Encounter for therapeutic drug level monitoring
CPT/HCPCS: 36415; 82565; 82607; 82728; 83540; 83735; 84132; 84443; 84450; 84460; 84466

== ENCOUNTER 2024-06-28 14:09 | Outpatient (CLI) | payer MEDICARE ==
[2024-06-28 14:20] LABS: HCT - HEMATOCRIT 43.4 % (37.0-47.0); HGB - HEMOGLOBIN 13.9 g/dL (12.0-16.0); MEAN CORPUSCULAR HEMOGLOBIN 33.3 pg (27.0-31.0); MEAN CORPUSCULAR VOLUME 104.1 fL (81.0-99.0); NEUTROPHILS % (AUTO) 76.7 %; RED BLOOD COUNT 4.17 10^6/uL (4.20-5.40); RED CELL DISTRIBUTION WIDTH 13.2 % (12.0-15.0); WHITE BLOOD COUNT 6.5 x10^3/uL (4.8-10.8)
== END 2024-06-28 14:10 | disposition home or self-care (01) ==
LOC: LAB 14:09
PROVIDERS: ATTEND Obstetrics & Gynecology
DX: C55 Malignant neoplasm of uterus, part unspecified (principal)
CPT/HCPCS: 36415; 85027; 86304